=== PATIENT | female | born 1995 | race Caucasian/White ===

== ENCOUNTER 2018-03-08 02:24 | Emergency (ER) | payer OTHER ==
[~2018-03-08] VITALS: Ht 162.6 cm; Wt 103.5 kg
[2018-03-08 02:53] LABS: APPEARANCE SL.HAZY ((CLEAR)); BILIRUBIN SMALL; BLOOD NEGATIVE; COLOR AMBER ((YELLOW)); GLUCOSE (STRIP) NEGATIVE; KETONES 20; LEUKOCYTES TRACE; NITRITE NEGATIVE; PROTEIN (STRIP) 30; SPECIFIC GRAVITY 1.031 (1.000-1.030)
[2018-03-08 02:58] LABS: HEMATOCRIT 42.4 % (36.0-46.0); HEMOGLOBIN 14.4 G/DL (11.9-15.5); MCH 29.1 PG (29.0-34.0); MCV 85.7 FL (83-99); PLATELET COUNT 329 K/uL (156-360); RBC DIS.WIDTH-CV 12.6 % (11.8-14.6); RBC DIS.WIDTH-SD 38.8 % (39-53); RED BLOOD COUNT 4.95 M/uL (3.80-5.20); WHITE BLOOD COUNT 9.8 K/uL (4.1-10.2)
[2018-03-08 03:01] LABS: BACTERIA NONE SEEN /HPF; EPITHELIAL CELLS 1+ /HPF; MUCUS 4+ /LPF; RED BLOOD CELLS 0-5 /HPF (0-5); UCUL ADDED? YES
[2018-03-08 03:11] LABS: ALBUMIN 4.6 g/dL (3.2-4.8)
[2018-03-08 03:12] LABS: CHLORIDE 102 mEq/L (99-109); POTASSIUM 3.5 mEq/L (3.7-5.4); SODIUM 140 mEq/L (136-147)
[2018-03-08 03:14] LABS: GLUCOSE 95 mg/dL (70-99)
[2018-03-08 03:16] LABS: TOTAL BILIRUBIN 0.9 mg/dL (0.0-1.0)
[2018-03-08 03:17] LABS: ALKALINE PHOSPHATASE 67 IU/L (3-129)
[2018-03-08 03:18] LABS: CREATININE 0.7 mg/dL (0.6-1.3)
[2018-03-08 03:19] LABS: AST (GOT) 11 IU/L (2-34); UREA NITROGEN (BUN) 12 mg/dL (9-23)
[2018-03-08 03:20] LABS: ALT (GPT) 11 IU/L (3-49)
[2018-03-08 03:22] LABS: GFR ESTIMATE (CALCULATED) > 59 mL/min/
[2018-03-08 03:26] LABS: QUANTITATIVE HCG < 4.0 MIU/ML
[2018-03-08] MEDS ORDERED: ZOFRAN4 MG PO (04:03)
[2018-03-08] MEDS ORDERED: KEFLEX250 MG PO (04:03)
[2018-03-08] MEDS ORDERED: BENTYL20 MG PO (04:03)
[2018-03-08 04:21] VITALS: BP 114/80
== END 2018-03-08 04:22 | disposition home or self-care (01) ==
LOC: EME 02:24
DX: N30.01 Acute cystitis with hematuria (principal); F17.200 Nicotine dependence, unspecified, uncomplicated
CPT/HCPCS: 80053; 81003; 84702; 85027; 87086; 99281; 99284